=== PATIENT | female | born 1985 | race African-American/Black ===

== ENCOUNTER 2020-04-21 15:17 | Emergency (ER) | payer MEDICAID ==
[~2020-04-21] VITALS: Ht 162.6 cm; Wt 74.5 kg
[2020-04-21] MEDS ORDERED: SODIUM CHLORIDE 0.9% 500 ML IV ONE (16:15)
[2020-04-21] MEDS ORDERED: ONDANSETRON HCL 4MG/2ML INJ IV ONE (16:15)
[2020-04-21 16:17] LABS: HEMATOCRIT. 35.3 % (36.0-48.0); HEMOGLOBIN. 11.2 g/dL (12.0-16.0); MEAN CORPUSCULAR HEMOGLOBIN 26.7 pg (28.0-32.0); MEAN PLATELET VOLUME 8.7 fl (7.4-10.4); PLATELET 316 x1000/uL (130-400); RED BLOOD CELL COUNT 4.21 mill/uL (4.2-5.4); RED CELL DISTRIBUTION WIDTH 17.4 % (11.6-14.6)
[2020-04-21 16:25] LABS: CHLORIDE 108 mEq/L (98-107); INR 1.1; PROTHROMBIN TIME 11.2 sec (9.6-11.0)
[2020-04-21 16:42] LABS: HCG SCREEN NEGATIVE
[2020-04-21 17:10] LABS: PLATELET ESTIMATE NORMAL
[2020-04-21 18:10] VITALS: BP 110/53
== END 2020-04-21 18:10 | disposition left against medical advice (07) ==
LOC: ER 15:17
DX: R10.9 Unspecified abdominal pain (principal); R11.2 Nausea with vomiting, unspecified; J45.909 Unspecified asthma, uncomplicated; Z88.0 Allergy status to penicillin; Z88.6 Allergy status to analgesic agent
CPT/HCPCS: 36415; 80053; 83690; 84703; 85025; 85610; 96361; 96374; 99283; J2405; J7040

== ENCOUNTER 2020-04-27 15:39 | Inpatient (IN) | payer MEDICAID ==
[~2020-04-27] VITALS: Ht 160 cm; Wt 74.8 kg
[2020-04-27] MEDS ORDERED: FAMOTIDINE 20MG/2ML VIAL IV STA (16:50)
[2020-04-27] MEDS ORDERED: SODIUM CHLORIDE 0.9% 1,000 ML IV ONE (16:50)
[2020-04-27] MEDS ORDERED: ONDANSETRON HCL 4MG/2ML INJ IV STA ×2 (16:50→19:35)
[2020-04-27 17:39] LABS: HEMOGLOBIN. 10.1 g/dL (12.0-16.0)
[2020-04-27 17:42] LABS: BASOPHILS % 0.3 % (0.0-2.0); EOSINOPHILS % 0.6 % (0.0-5.0); HEMATOCRIT. 30.5 % (36.0-48.0); LYMPHOCYTES % 18.5 % (20.0-50.0); MEAN CORPUSCULAR HEMOGLOBIN 26.4 pg (28.0-32.0); MEAN CORPUSCULAR VOLUME 79.8 fL (81.0-99.0); NEUTROPHILS % 78.6 % (40.0-76.0); PLATELET 132 x1000/uL (130-400); RED BLOOD CELL COUNT 3.82 mill/uL (4.2-5.4); RED CELL DISTRIBUTION WIDTH 17.9 % (11.6-14.6)
[2020-04-27 17:47] LABS: INR 1.1; PROTHROMBIN TIME 11.9 sec (9.6-11.0)
[2020-04-27 18:06] LABS: CHLORIDE 98 mEq/L (98-107)
[2020-04-27 18:10] LABS: ETHANOL BLOOD < 10 mg/dL
[2020-04-27 18:47] LABS: HCG SCREEN NEGATIVE
[2020-04-27] MEDS ORDERED: MAGNESIUM/ALUMINUM HYDROXIDE/SIMETHICONE 30ML UDC PO STA (19:35)
[2020-04-27] MEDS ORDERED: MORPHINE SULFATE 4 MG/ML CPJ (NOT FOR IM USE) IV STA (19:35)
[2020-04-27] MEDS ORDERED: CEFTRIAXONE 2 GM IV ONE (19:45)
[2020-04-27] MEDS ORDERED: METRONIDAZOLE 500 MG PREMIX 100 ML IV ONE (21:30)
[2020-04-27] MEDS ORDERED: POTASSIUM CHLORIDE 20MEQ TABLET SR PO NR (21:45)
[2020-04-28 00:02] LABS: CLARITY URINE TURBID (CLEAR); COLOR URINE DK YELLOW (YELLOW); KETONES URINE NEGATIVE (NEGATIVE); LEUKOCYTE ESTERASE URINE 3+ (NEGATIVE); NITRITE URINE NEGATIVE (NEGATIVE); OCCULT BLOOD URINE 2+ (NEGATIVE); PROTEIN URINE 2+ (NEGATIVE); SPECIFIC GRAVITY URINE 1.014 (1.005-1.030)
[2020-04-28 00:24] LABS: *AMPHETAMINES SCREEN URINE NEGATIVE (NEGATIVE); *BARBITURATES SCREEN URINE NEGATIVE (NEGATIVE); *BENZODIAZEPINES SCREEN URINE NEGATIVE (NEGATIVE); *COCAINE SCREEN URINE NEGATIVE (NEGATIVE)
[2020-04-28 00:25] LABS: CANNABINOID URINE SCREEN NEGATIVE (NEGATIVE); METHADONE URINE SCREEN NEGATIVE (NEGATIVE); PHENCYCLIDINE URINE SCREEN NEGATIVE (NEGATIVE)
[2020-04-28 00:32] LABS: OPIATES URINE SCREEN PRESUMTIVE POSITIVE (NEGATIVE)
[2020-04-28] MEDS: MORPHINE SULFATE 2 MG/ML CPJ (NOT FOR IM USE) IV PRN ×4 (00:56→21:02)
[2020-04-28] MEDS: ONDANSETRON HCL 4MG/2ML INJ IV PRN ×3 (00:56→21:07)
[2020-04-28 04:53] LABS: HEMATOCRIT. 28.8 % (36.0-48.0); HEMOGLOBIN. 9.6 g/dL (12.0-16.0); MEAN CORPUSCULAR HEMOGLOBIN 26.6 pg (28.0-32.0)
[2020-04-28 04:59] LABS: CHLORIDE 100 mEq/L (98-107)
[2020-04-28 07:07] LABS: PLATELET 70 x1000/uL (130-400)
[2020-04-28 07:19] LABS: PLATELET ESTIMATE NORMAL
[2020-04-28 09:15] VITALS: BP 107/68
[2020-04-28 10:00] VITALS: BP 107/68
[2020-04-28] MEDS ORDERED: POTASSIUM CHLORIDE 20MEQ TABLET SR PO NR (10:15)
[2020-04-28] MEDS ORDERED: NAPR-681 PO (11:58)
[2020-04-28] MEDS ORDERED: BACL-141 PO (11:58)
[2020-04-28 12:00] VITALS: BP 124/70
[2020-04-28 14:30] LABS: TOTAL IRON BINDING CAPACITY 256 ug/dL (250-450)
[2020-04-28 15:38] LABS: HEPATITIS B SURFACE ANTIGEN NEGATIVE
[2020-04-28 16:00] VITALS: BP 110/67
[2020-04-28 16:08] LABS: HEPATITIS A AB IGM NEGATIVE (NEGATIVE)
[2020-04-28] MEDS: SODIUM CHLORIDE 0.9% 1,000 ML IV SCH (16:50)
[2020-04-28 20:00] VITALS: BP 117/67
[2020-04-28] MEDS ORDERED: CEFTRIAXONE 1 G PREMIX 50 ML IV SCH (21:00)
[2020-04-28] MEDS ORDERED: CEFTRIAXONE 1,000 MG in DEXTROSE 5% WATER 50 ML IV SCH (21:00)
[2020-04-29] VITALS: BP 104/63
[2020-04-29] MEDS: MORPHINE SULFATE 2 MG/ML CPJ (NOT FOR IM USE) IV PRN ×3 (02:06→13:58)
[2020-04-29 04:00] VITALS: BP 106/67
[2020-04-29] MEDS: SODIUM CHLORIDE 0.9% 1,000 ML IV SCH ×2 (04:19→16:10)
[2020-04-29 08:00] VITALS: BP 99/64
[2020-04-29 08:40] LABS: HEMATOCRIT 26.3 % (36.0-48.0); HEMOGLOBIN 8.6 g/dL (12.0-16.0); MEAN CORPUSCULAR HEMOGLOBIN 26.1 pg (28.0-32.0); MEAN CORPUSCULAR VOLUME 79.5 fL (81.0-99.0); RED BLOOD CELL COUNT 3.31 mill/uL (4.2-5.4); RED CELL DISTRIBUTION WIDTH 17.9 % (11.6-14.6)
[2020-04-29] MEDS ORDERED: LEVO500T2 MT (08:42)
[2020-04-29 08:46] LABS: CHLORIDE 103 mEq/L (98-107)
[2020-04-29] MEDS ORDERED: POTASSIUM CHLORIDE 20MEQ TABLET SR PO NR (09:45)
[2020-04-29 10:37] LABS: PLATELET 107 x1000/uL (130-400)
[2020-04-29 12:00] VITALS: BP 86/51
[2020-04-29] MEDS ORDERED: SODIUM CHLORIDE 0.9% 500 ML IV ONE (12:45)
[2020-04-29 16:00] VITALS: BP 108/70
[2020-04-29 16:04] VITALS: BP 108/70
== END 2020-04-29 16:33 | disposition home or self-care (01) ==
LOC: ER 15:39 → MICUSO 22:03 → 6EST 04-28 08:14
PROVIDERS: ADMIT Internal Medicine; ATTEND Internal Medicine
DX: K80.20 Calculus of gallbladder without cholecystitis without obstruction (principal); E43 Unspecified severe protein-calorie malnutrition; E87.1 Hypo-osmolality and hyponatremia; E87.6 Hypokalemia; J45.909 Unspecified asthma, uncomplicated; N12 Tubulo-interstitial nephritis, not specified as acute or chronic; F17.200 Nicotine dependence, unspecified, uncomplicated; N26.1 Atrophy of kidney (terminal); K76.9 Liver disease, unspecified; D50.9 Iron deficiency anemia, unspecified; R16.0 Hepatomegaly, not elsewhere classified; K92.0 Hematemesis; Z71.6 Tobacco abuse counseling; Z68.29 Body mass index [BMI] 29.0-29.9, adult; Z88.0 Allergy status to penicillin; Z88.6 Allergy status to analgesic agent; Z88.8 Allergy status to other drugs, medicaments and biological substances
CPT/HCPCS: 36415; 71045; 74181; 76700; 80048; 80053; 80076; 80305; 80320; 81003; 82248; 82728; 83540; 83550; 84703; 85025; 85027; 86705; 86709; 86803; 86850; 86900; 87077; 87186; 87340; 93005; 96374; 99285; J0696; J2270; J2405; J3490; J7030; J7060; G0480